=== PATIENT | male | born 1960 | race Caucasian/White ===

== ENCOUNTER 2018-05-08 07:24 | Day surgery (SDC) | payer OTHER ==
[2018-05-07 13:40] VITALS: BMI 29.0
--- NOTE | 2018-05-07 23:04 | HP ---
HISTORY OF PRESENT ILLNESS: This is a 58-year-old male with positive Cologuard testing. The patient has no specific GI symptoms. He never had colonoscopy in the past. He had no family history of colon cancer. The patient had routine stool testing done for Cologuard that came back positive. ALLERGIES: NONE. SOCIAL HISTORY: The patient does not smoke and drinks socially. PAST MEDICAL HISTORY: Hypertension and hypothyroidism. PHYSICAL EXAMINATION: VITAL SIGNS: Pulse is 70, blood pressure 130/80. HEENT: Conjunctivae clear. CARDIOVASCULAR: First and second heart sounds heard. LUNGS: Clear to auscultation. ABDOMEN: Soft. No organomegaly. No tenderness. No masses. ADMITTING DIAGNOSIS: Positive Cologuard test. PLAN: Colonoscopy. Job ID: [id number]
--- NOTE | 2018-05-08 16:25 | OP ---
DATE OF PROCEDURE: 05/08/2018 PROCEDURES PERFORMED: 1. Colonoscopy with biopsy. 2. Colonoscopy with polypectomy. 3. Colonoscopy with a 7-Bangladeshi heater probe therapy at polypectomy site because of mild bleeding. PREOPERATIVE DIAGNOSIS: Positive Cologuard testing. He has nonspecific GI symptoms. POSTOPERATIVE DIAGNOSES: 1. Sessile polyp, cecum. 2. Sessile polyp, sigmoid colon x2. 3. Sigmoid diverticular disease with mild diverticulitis. 4. Multiple tiny ulcerations around the appendicular opening, biopsies taken. DESCRIPTION OF PROCEDURE: The patient was placed on his left lateral position and was given sedation by Anesthesia Department. A rectal exam was done. The scope was advanced into the rectum. No lesions felt on rectal exam. A Pentax video colonoscope was introduced into the rectum, advanced all the way to cecum. The prep was very good. The mucosa appeared normal. Around the appendicular opening, there were some tiny ulcerations seen of unknown etiology. This was biopsied. There was a sessile polyp of the cecum, removed by snare cautery with good hemostasis. In the ascending colon, hepatic flexure, transverse colon, splenic flexure, and descending colon, no pathology seen. The sigmoid colon showed scattered diverticulosis. Around the area of diverticulosis, the mucosa was edematous and erythematous and showed mild inflammatory changes. There were 2 sessile polyps seen over the lower sigmoid. Both removed with snare cautery. Both polypectomy site had mild oozing of blood. The polypectomy site was cauterized with 7-Bangladeshi heater probe with good hemostasis. Retroflexion of scope in the rectum showed small hemorrhoids. DISCHARGE PLANNING: A 58-year-old male, referred to me by Dr. Amando Spaulding because of positive Cologuard testing. He has undergone colonoscopy, polypectomy x3. Two polyps removed from the sigmoid colon area and one was removed from the cecal area. He also had a biopsy of the cecum. DISCHARGE RECOMMENDATIONS: 1. The patient advised to call me if he has abdominal pain, hematochezia. 2. High-fiber diet. 3. He will come back to clinic in 2 weeks. Job ID: [id number]
[2018-05-08] MEDS ORDERED: Lidocaine 1% PF 5 ML VIAL ONE (20:38)
[2018-05-08] MEDS ORDERED: PROPOFOL 200 MG/20 ML VIAL ONE (20:38)
== END 2018-05-08 10:12 | disposition home or self-care (01) ==
LOC: SDC 07:24
PROVIDERS: ATTEND Internal Medicine Gastroenterology
PROC: 0DBN8ZZ Excision of Sigmoid Colon, Via Natural or Artificial Opening Endoscopic (ICD-10-PCS; principal; 2018-05-08)
PROC: 0DBH8ZZ Excision of Cecum, Via Natural or Artificial Opening Endoscopic (ICD-10-PCS; principal; 2018-05-08)
PROC: 0DBM8ZZ Excision of Descending Colon, Via Natural or Artificial Opening Endoscopic (ICD-10-PCS; principal; 2018-05-08)
DX: K52.9 Noninfective gastroenteritis and colitis, unspecified (principal); D12.0 Benign neoplasm of cecum; D12.5 Benign neoplasm of sigmoid colon; K63.5 Polyp of colon; K57.30 Diverticulosis of large intestine without perforation or abscess without bleeding; K64.9 Unspecified hemorrhoids; Z88.5 Allergy status to narcotic agent; Z79.899 Other long term (current) drug therapy
CPT/HCPCS: 88305; J2001; J2704

== ENCOUNTER 2018-07-10 06:43 | Day surgery (SDC) | payer OTHER ==
[2018-07-09 10:43] VITALS: BMI 28.7
[2018-07-10 07:45] LABS: #Basophils 0.1 thou/uL (0.0-0.2); #Eosinphils 0.2 thou/uL (0.0-0.7); #Lymphocytes 1.2 thou/uL (1.20-3.40); #Monocytes 0.4 thou/uL (0.11-0.59); #Neutrophils 4.1 thou/uL (1.40-6.50); %Basophils 1.1 % (0.0-1.0); %Eosinophils 2.9 % (0.0-10.0); %Lymphocytes 20.3 % (21.0-51.0); %Neutrophils 68.8 % (42.0-75.0); Hemoglobin 14.9 g/dL (14.0-18.0); Mean Corpuscular HGB CONC 33.6 g/dL (32.0-36.0); Mean Corpuscular Hemoglobin 28.3 pg (27.0-31.0); Mean Corpuscular Volume 84.3 fL (78.0-98.0); Mean Platelet Volume 7.3 fL (7.4-10.4); Platelet Count 174 thou/uL (130-400); RBC Distribution Width 12.1 % (11.5-14.5); Red Blood Cell (RBC) Count 5.25 mill/uL (4.70-6.10); White Blood Cell (WBC) Count 5.9 thou/uL (4.8-10.8)
[2018-07-10] MEDS ORDERED: Fentanyl 100 MCG/2 ML VIAL ONE ×2 (08:00→08:39)
[2018-07-10] MEDS ORDERED: Midazolam HCl 2 mg/2 ml Vial ONE (08:00)
[2018-07-10] MEDS ORDERED: Bupivacaine PF 0.5% 30 ML VIAL ONE (08:30)
[2018-07-10] MEDS ORDERED: Bacitracin Zinc Ointment 30 gm TUBE ONE (08:30)
[2018-07-10] MEDS ORDERED: Betamet Acet/Betamet Na Ph 30 MG/5 ML VIAL ONE (09:12)
--- NOTE | 2018-07-10 11:03 | OP ---
DATE OF PROCEDURE: 07/10/2018 PREOPERATIVE DIAGNOSES: Dupuytren's cord left hand palm with a nodule and radiation toward the A1 pulleys of the ring and long finger. PROCEDURES PERFORMED: 1. Dupuytren's cord palmar fasciectomy, subtotal. 2. Digital nerve neuroplasty under magnification, small, ring and long fingers. Cord length 4.5 to 5 cm. SPECIMENS: Sent to the lab. TOURNIQUET TIME: 18 minutes. ESTIMATED BLOOD LOSS: Less than equal to 5 mL. INDICATION: The patient with cord, beginning to cause skin dimpling and intermittent pain and started to make MP joint contracture. ANESTHESIA: [place] anesthesia, block supraclavicular augmented by general LMA technique. DESCRIPTION OF PROCEDURE: After successful general LMA technique and a block, time-out done appropriately and the limb was prepped and draped. The limb was exsanguinated with the tourniquet to 250 mmHg pressure. The patient then had a zigzag incision outlined long enough to be 1.5 cm distal to the palpable edge of a Dupuytren's nodule and went 5 mm proximal to the most palpable proximal extent of the mass. We carried this through skin and subcutaneous tissue. Once we identified the skin dimpling area and with a Liberty blade, we then identified the digital nerve via neuroplasty and protected them on both sides of the small finger. We also saw that the dimple/nodule was in line with the long finger. We then identified after the neuroplasty all of the "finger" of the thickened white glistening Dupuytren's fascial defect and elevated them. We then removed it distally from the distal skin, A1 raquel/A2 raquel junction and then elevated them, carried this back proximally to the point where we just 1 cm distal to the palm of the fascia at the transcarpal ligament. We protected the neurovascular bundle out the entire dissection and at the time of final removal. The specimen was sent to the lab that was almost 5 cm long and approximately 6 mm in diameter. We then deflated the tourniquet, obtained hemostasis. We placed 5 mL of Celestone drip technique over the nerve and the center of the wound. Once we obtain hemostasis, we closed the wound with interrupted 4-0 nylon in simple pattern. Bulky soft dressing was applied and the patient left the operating room without evidence of anesthetic or operative complication. Job ID: [id number]
[2018-07-10] MEDS ORDERED: Bupivacaine HCl 0.5%/Epinephrine 1:200,000/PF 30 ml Vial ONE (13:20)
[2018-07-10] MEDS ORDERED: Ketorolac Tromethamine 30 MG/ML VIAL ONE (13:49)
[2018-07-10] MEDS ORDERED: Ondansetron PF 4 MG/2 ML Vial ONE (13:49)
[2018-07-10] MEDS ORDERED: Dexamethasone 20 MG/5 ML VIAL ONE (13:49)
[2018-07-10] MEDS ORDERED: Metoclopramide HCl 10 MG/2 ML VIAL ONE (13:49)
[2018-07-10] MEDS ORDERED: Lidocaine 1% PF 5 ML VIAL ONE (13:49)
[2018-07-10] MEDS ORDERED: PROPOFOL 200 MG/20 ML VIAL ONE (13:49)
== END 2018-07-10 11:42 | disposition home or self-care (01) ==
LOC: SDC 06:43
PROVIDERS: ATTEND Orthopaedic Surgery Hand Surgery
PROC: 0JNK0ZZ Release Left Hand Subcutaneous Tissue and Fascia, Open Approach (ICD-10-PCS; principal; 2018-07-10)
PROC: 0LN80ZZ Release Left Hand Tendon, Open Approach (ICD-10-PCS; principal; 2018-07-10)
DX: M72.0 Palmar fascial fibromatosis [Dupuytren] (principal); I10 Essential (primary) hypertension; E03.9 Hypothyroidism, unspecified; Z79.899 Other long term (current) drug therapy; Z88.6 Allergy status to analgesic agent
CPT/HCPCS: 36415; 85025; 85652; 88304; 93005; 93010; J0131; J0702; J2250; J3010; S0020